=== PATIENT | male | born 1965 | race Hispanic/Latino ===

== ENCOUNTER 2022-09-17 00:54 | Emergency (ER) | payer MEDICAID ==
[~2022-09-17] VITALS: Ht 177.8 cm; Wt 84.8 kg
[2022-09-17] MEDS ORDERED: ACETAMINOPHEN WITH CODEINE 1 TAB TAB PO ONE (04:00)
[2022-09-17 04:34] LABS: HEMATOCRIT 46.9 % (42-54); MEAN CORPUSCULAR HEMOGLOBIN 30.8 pg (27.0-33.0); MEAN CORPUSCULAR HGB CONC 33.9 g/dL (32.0-36.0); MEAN CORPUSCULAR VOLUME 90.9 fL (79-99); RED BLOOD CELL COUNT(AUTO) 5.16 MIL/uL (4.50-6.20); RED CELL DISTRIBUTION WIDTH 12.6 % (11.0-15.5); WHITE BLOOD COUNT (AUTO) 10.7 K/uL (4.8-10.8)
[2022-09-17 04:41] LABS: CREATININE 1.4 mg/dL (0.5-1.5); POTASSIUM 3.7 mmol/L (3.5-5.1)
[2022-09-17 04:44] LABS: URIC ACID 6.4 mg/dL (2.6-7.2)
[2022-09-17] MEDS ORDERED: INSULIN HUMULIN R 100 UNIT/ML 3ML SQ ONE (05:00)
[2022-09-17] MEDS ORDERED: CYCL10TA16 PO (05:05)
[2022-09-17 05:12] VITALS: BP 145/60
== END 2022-09-17 05:15 | disposition home or self-care (01) ==
LOC: EDH 00:54
DX: M72.2 Plantar fascial fibromatosis (principal); Z88.6 Allergy status to analgesic agent
CPT/HCPCS: 99284; 84550; 80048; 85027; 36415; 73610; 73630; 96372; J1815